=== PATIENT | female | born 1960 | race Caucasian/White ===

== ENCOUNTER → 2017-03-06 | Outpatient (REF) | payer OTHER ==
[2017-03-06 13:11] LABS: MEAN CORPUSCULAR HEMOGLOBIN 27.3 pg (27.0-33.0); MEAN CORPUSCULAR HGB CONC 33.6 g/dl (32.0-36.5); MEAN CORPUSCULAR VOLUME 81.2 fl (80.0-96.0); RED CELL DISTRIBUTION WIDTH 14.6 % (11.5-14.5); WHITE BLOOD COUNT 6.8 K/mm3 (4.0-10.0)
[2017-03-06 13:41] LABS: FOLATE 13.5 NG/ML (>5.4); VITAMIN B12 LEVEL 285 PG/ML (247-911)
[2017-03-06 15:06] LABS: ALBUMIN 3.4 GM/DL (3.2-5.2); ALKALINE PHOSPHATASE 87 U/L (45-117); ALT/SGPT 17 U/L (12-78); ANION GAP 16 MEQ/L (8-16); AST/SGOT 10 U/L (15-37); BILIRUBIN,TOTAL 0.5 MG/DL (0.2-1.0); BLOOD UREA NITROGEN 16 MG/DL (7-18); CARBON DIOXIDE LEVEL 20 MEQ/L (21-32); CHLORIDE LEVEL 101 MEQ/L (98-107); CHOLESTEROL LEVEL 182 MG/DL (<200); CREATININE FOR GFR 0.92 MG/DL (0.55-1.02); FREE T4 1.05 NG/DL (0.76-1.46); GLOMERULAR FILTRATION RATE > 60.0 (>51); GLUCOSE, FASTING 239 MG/DL (70-105); POTASSIUM SERUM 4.6 MEQ/L (3.5-5.1); SODIUM LEVEL 137 MEQ/L (136-145); TOTAL PROTEIN 6.8 GM/DL (6.4-8.2); TRIGLYCERIDES LEVEL 235 MG/DL (<150)
== END ==
LOC: M SFHCPLAZ 11:03
PROVIDERS: ATTEND Family Medicine
DX: L97.519 Non-pressure chronic ulcer of other part of right foot with unspecified severity (principal); E11.621 Type 2 diabetes mellitus with foot ulcer; F32.9 Major depressive disorder, single episode, unspecified; Z68.43 Body mass index [BMI] 50.0-59.9, adult; E78.5 Hyperlipidemia, unspecified

== ENCOUNTER → 2017-03-08 | Outpatient (REF) | payer OTHER ==
[2017-03-08 14:05] LABS: ANION GAP 13 MEQ/L (8-16); BLOOD UREA NITROGEN 14 MG/DL (7-18); CALCIUM LEVEL 9.5 MG/DL (8.5-10.1); CARBON DIOXIDE LEVEL 24 MEQ/L (21-32); CHLORIDE LEVEL 102 MEQ/L (98-107); CHOLESTEROL LEVEL 172 MG/DL (<200); CREATININE FOR GFR 0.82 MG/DL (0.55-1.02); GLOMERULAR FILTRATION RATE > 60.0 (>51); GLUCOSE, FASTING 232 MG/DL (70-105); POTASSIUM SERUM 4.9 MEQ/L (3.5-5.1); SODIUM LEVEL 139 MEQ/L (136-145); TRIGLYCERIDES LEVEL 283 MG/DL (<150)
== END ==
LOC: M LABDRWAD 12:45
PROVIDERS: ATTEND Physician Assistant Medical
DX: E11.65 Type 2 diabetes mellitus with hyperglycemia (principal); E78.2 Mixed hyperlipidemia

== ENCOUNTER → 2017-03-08 | Outpatient (REF) | payer OTHER | LOC: M SFHCADAM 12:28 | PROVIDERS: ATTEND Family Medicine | DX: L97.519 Non-pressure chronic ulcer of other part of right foot with unspecified severity (principal); E11.621 Type 2 diabetes mellitus with foot ulcer; F32.9 Major depressive disorder, single episode, unspecified; Z68.43 Body mass index [BMI] 50.0-59.9, adult ==

== ENCOUNTER → 2017-07-29 | Outpatient (REF) | payer OTHER | LOC: M LAB REF 16:30 | PROVIDERS: ATTEND Surgery | DX: E11.621 Type 2 diabetes mellitus with foot ulcer (principal); L97.519 Non-pressure chronic ulcer of other part of right foot with unspecified severity ==

== ENCOUNTER 2018-01-29 08:17 | Day surgery (SDC) | payer OTHER, MEDICAID ==
[~2018-01-29 08:17] MED LIST: PHENYLEPHRINE HCL 10 % OPHTH. SOL 5ML OD
[2018-01-29] MEDS ORDERED: PHENYLEPHRINE 2.5% OPHTH SOL 2ML As Ordered (08:26)
[2018-01-29] MEDS ORDERED: OFLOXACIN 0.3 % (OCUFLOX) OPTH SOL 5ML As Ordered (08:26)
[2018-01-29] MEDS ORDERED: CYCLOPENTOLATE 2% OPHTH SOLN 2ML BTL As Ordered (08:26)
[2018-01-29] MEDS ORDERED: TROPICAMIDE 1% OPHTH SOLN 2ML As Ordered (08:26)
[2018-01-29 08:50] LABS: BEDSIDE GLUCOSE 192 MG/DL (70-105)
[2018-01-29] MEDS: PHENYLEPHRINE 2.5% OPHTH SOL 2ML OD (08:56)
[2018-01-29] MEDS: CYCLOPENTOLATE 2% OPHTH SOLN 2ML BTL OD (08:56)
[2018-01-29] MEDS: LIDOCAINE 3.5 % 1ML OPHTH TOPICAL GEL OU (08:56)
[2018-01-29] MEDS: OFLOXACIN 0.3 % (OCUFLOX) OPTH SOL 5ML OD (08:56)
[2018-01-29] MEDS: TROPICAMIDE 1% OPHTH SOLN 2ML OD (08:57)
[2018-01-29] MEDS ORDERED: MIDAZOLAM INJ 2 MG/2 ML VIAL (J2250) As Ordered (09:01)
[2018-01-29] MEDS ORDERED: fentaNYL 100 MCG/2 ML INJECTION (J3010) As Ordered (09:02)
[2018-01-29] MEDS: LIDOCAINE 1% SDV 5 ML VIAL As Ordered (09:36)
[2018-01-29] MEDS: BSS with VANC/TOB/EPI for EYE CASES IR (09:36)
[2018-01-29] MEDS: MOXIFLOXACIN IN BSS 0.25MG/0.25ML INTRACAMERAL INJ (OR EYE ONLY)(J2280) As Ordered (09:36)
[2018-01-29] MEDS: POVIDONE-IODINE 5% OPHTH PREP SOL 30ML As Ordered (09:36)
[2018-01-29] MEDS: HEALON DUET (HEALON 10MG/ML 0.55ML & HEALON ENDOCOAT 30MG/ML 0.85ML) As Ordered (09:36)
[2018-01-29] MEDS: TRIAMCINOLONE PRES FR 40 MG/ML 1ML(TRIESENCE)(OR EYE ONLY)(J3300 PER 1MG) As Ordered (09:36)
== END 2018-01-29 10:40 | disposition home or self-care (01) ==
LOC: M SDC 08:17
DX: H25.9 Unspecified age-related cataract (principal); E11.9 Type 2 diabetes mellitus without complications; I10 Essential (primary) hypertension; Z79.4 Long term (current) use of insulin; Z79.899 Other long term (current) drug therapy; F32.9 Major depressive disorder, single episode, unspecified; E78.5 Hyperlipidemia, unspecified
CPT/HCPCS: 66984

== ENCOUNTER 2018-03-25 09:17 | Day surgery (SDC) | payer OTHER, MEDICAID ==
[~2018-03-25 09:17] MED LIST changes: -PHENYLEPHRINE HCL 10 % OPHTH. SOL 5ML OD; +PHENYLEPHRINE HCL 10 % OPHTH. SOL 5ML OS
[2018-03-25] MEDS ORDERED: LIDOCAINE 1% MDV 20ML VIAL SQ (09:30)
[2018-03-25] MEDS: OFLOXACIN 0.3 % (OCUFLOX) OPTH SOL 5ML OS (10:21)
[2018-03-25 10:22] LABS: BEDSIDE GLUCOSE 258 MG/DL (70-105)
[2018-03-25] MEDS: TROPICAMIDE 1% OPHTH SOLN 2ML OS (10:22)
[2018-03-25] MEDS: LIDOCAINE 3.5 % 1ML OPHTH TOPICAL GEL OU (10:22)
[2018-03-25] MEDS: PHENYLEPHRINE 2.5% OPHTH SOL 2ML OS (10:22)
[2018-03-25] MEDS: CYCLOPENTOLATE 2% OPHTH SOLN 2ML BTL OS (10:22)
[2018-03-25] MEDS: HumaLOG INSULIN (NovoLOG) PER UNIT SQ (10:42)
[2018-03-25] MEDS: LIDOCAINE 1% SDV 5 ML VIAL As Ordered ×2 (11:25→11:32)
[2018-03-25] MEDS: BSS with VANC/TOB/EPI for EYE CASES IR (11:25)
[2018-03-25] MEDS: TRIAMCINOLONE PRES FR 40 MG/ML 1ML(TRIESENCE)(OR EYE ONLY)(J3300 PER 1MG) As Ordered (11:25)
[2018-03-25] MEDS: POVIDONE-IODINE 5% OPHTH PREP SOL 30ML As Ordered ×2 (11:25→11:32)
[2018-03-25] MEDS: HEALON DUET (HEALON 10MG/ML 0.55ML & HEALON ENDOCOAT 30MG/ML 0.85ML) As Ordered ×2 (11:25→11:32)
[2018-03-25] MEDS: MOXIFLOXACIN IN BSS 0.25MG/0.25ML INTRACAMERAL INJ (OR EYE ONLY)(J2280) As Ordered (11:25)
[2018-03-25] MEDS ORDERED: MIDAZOLAM INJ 2 MG/2 ML VIAL (J2250) As Ordered (11:29)
[2018-03-25] MEDS ORDERED: fentaNYL 100 MCG/2 ML INJECTION (J3010) As Ordered (11:29)
[2018-03-25] MEDS: CEFUROXIME 1MG/0.1ML INTRACAMERAL INJ As Ordered (11:33)
== END 2018-03-25 12:22 | disposition home or self-care (01) ==
LOC: M SDC 09:17
DX: H25.9 Unspecified age-related cataract (principal); H57.03 Miosis; I10 Essential (primary) hypertension; E78.5 Hyperlipidemia, unspecified; E11.9 Type 2 diabetes mellitus without complications; F32.9 Major depressive disorder, single episode, unspecified; Z87.891 Personal history of nicotine dependence; Z79.4 Long term (current) use of insulin; Z88.2 Allergy status to sulfonamides; Z91.013 Allergy to seafood; Z79.899 Other long term (current) drug therapy
CPT/HCPCS: 66982

== ENCOUNTER → 2018-06-04 | Outpatient (REF) | payer OTHER, MEDICAID ==
[2018-06-04 13:28] LABS: HEMOGLOBIN 14.2 g/dl (12.0-15.5); MEAN CORPUSCULAR HEMOGLOBIN 25.6 pg (27.0-33.0); MEAN CORPUSCULAR HGB CONC 31.6 g/dl (32.0-36.5); MEAN CORPUSCULAR VOLUME 81.2 fl (80.0-96.0); PLATELET COUNT, AUTOMATED 375 10^3/uL (150-450); RED BLOOD COUNT 5.54 10^6/uL (4.00-5.40); RED CELL DISTRIBUTION WIDTH 14.3 % (11.5-14.5); WHITE BLOOD COUNT 6.5 10^3/uL (4.0-10.0)
[2018-06-04 13:41] LABS: ALBUMIN 3.6 GM/DL (3.2-5.2); ALBUMIN/GLOBULIN RATIO 1.09 (1.00-1.93); ALKALINE PHOSPHATASE 74 U/L (45-117); ALT/SGPT 18 U/L (12-78); ANION GAP 10 MEQ/L (8-16); AST/SGOT 12 U/L (7-37); BILIRUBIN,TOTAL 0.3 MG/DL (0.2-1.0); BLOOD UREA NITROGEN 13 MG/DL (7-18); CALCIUM LEVEL 9.2 MG/DL (8.5-10.1); CARBON DIOXIDE LEVEL 23 MEQ/L (21-32); CHLORIDE LEVEL 105 MEQ/L (98-107); CHOLESTEROL LEVEL 288 MG/DL (<200); CHOLESTEROL RISK RATIO 5.538 (<5); CREATININE FOR GFR 0.72 MG/DL (0.55-1.30); GLOMERULAR FILTRATION RATE > 60.0 (>51); GLUCOSE, FASTING 207 MG/DL (70-100); HDL CHOLESTEROL 52 MG/DL (>40); LDL CHOLESTEROL 178 MG/DL (<100); NON-HDL-C 236 MG/DL; POTASSIUM SERUM 4.4 MEQ/L (3.5-5.1); SODIUM LEVEL 138 MEQ/L (136-145); TOTAL PROTEIN 6.9 GM/DL (6.4-8.2); TRIGLYCERIDES LEVEL 288 MG/DL (<150)
[2018-06-04 13:55] LABS: ESTIMATED AVERAGE GLUCOSE 171 MG/DL (60-110); HEMOGLOBIN A1c 7.6 %
== END ==
LOC: M SFHCADAM 10:05
DX: F32.9 Major depressive disorder, single episode, unspecified (principal); E11.9 Type 2 diabetes mellitus without complications; E78.5 Hyperlipidemia, unspecified; E53.8 Deficiency of other specified B group vitamins

== ENCOUNTER → 2018-06-04 | Outpatient (REF) | payer OTHER, MEDICAID ==
[2018-06-04 15:34] LABS: FREE THYROXINE INDEX 2.5 % (1.3-4.8); T UPTAKE 34 % (30-39); THYROXINE (T4) 7.4 UG/DL (4.5-12.0)
[2018-06-06 14:38] LABS: SSA SJOGRENS A <0.2 AI (0.0-0.9); SSB SJOGRENS B <0.2 AI (0.0-0.9)
== END ==
LOC: M LAB REF 14:17
DX: Z13.29 Encounter for screening for other suspected endocrine disorder (principal)

== ENCOUNTER → 2019-01-07 | Outpatient (REF) ==
[~2019-01-07] MED LIST changes: +ATOR40TA75; +DILT1CAP9; +FARX1TAB3; +HYDR25TAB; +INSUDET; +INSUHUMDS; +LISI-538; +METF500T4; +NAPR500T6; +NYAM10003; -PHENYLEPHRINE HCL 10 % OPHTH. SOL 5ML OS; +SERT-138; +VICT18IN; +VITA10002
--- NOTE | 2019-01-08 02:59 | REP ---
Clinical: Left shoulder pain. Technique: Internal rotation, external rotation, and Y view of the right shoulder. Findings: Moderate/early advanced osteoarthritic degenerative changes at the acromioclavicular and glenohumeral joint are appreciated. Osteophytosis and periarticular calcifications are identified outlining the calcified glenoid rim along with calcific tendinopathy adjacent to the humeral tuberosity and the glenohumeral joint narrowing. Cortical irregularity and spurring involving the distal aspect of the acromion process is also appreciated with mild subacromial joint space narrowing on external rotation view to approximately 8.1 mm. No acute fracture dislocation. Impression: Moderate/early advanced osteoarthritic degenerative changes. Electronically Signed by Fuad Casas MD 01/08/2019 02:51 A
== END ==
LOC: M SMT 11:33
PROVIDERS: ATTEND Internal Medicine
DX: Z02.71 Encounter for disability determination (principal)

== ENCOUNTER → 2019-01-13 | Outpatient (REF) | payer OTHER, MEDICAID | LOC: M SFHCADAM 14:57 | PROVIDERS: ATTEND Family Medicine | DX: E11.9 Type 2 diabetes mellitus without complications (principal); E78.5 Hyperlipidemia, unspecified; F32.9 Major depressive disorder, single episode, unspecified; J01.90 Acute sinusitis, unspecified; Z53.9 Procedure and treatment not carried out, unspecified reason ==

== ENCOUNTER → 2019-02-05 | Outpatient (REF) | payer OTHER, MEDICAID ==
[2019-02-05 15:58] LABS: HEMATOCRIT 42.7 % (36.0-47.0); HEMOGLOBIN 13.6 g/dl (12.0-15.5); MEAN CORPUSCULAR HEMOGLOBIN 25.4 pg (27.0-33.0); MEAN CORPUSCULAR HGB CONC 31.9 g/dl (32.0-36.5); MEAN CORPUSCULAR VOLUME 79.8 fl (80.0-96.0); PLATELET COUNT, AUTOMATED 413 10^3/uL (150-450); RED BLOOD COUNT 5.35 10^6/uL (4.00-5.40); WHITE BLOOD COUNT 5.6 10^3/uL (4.0-10.0)
[2019-02-05 16:14] LABS: ALBUMIN 3.5 GM/DL (3.2-5.2); ALT/SGPT 26 U/L (12-78); BILIRUBIN,TOTAL 0.5 MG/DL (0.2-1.0); BLOOD UREA NITROGEN 11 MG/DL (7-18); CALCIUM LEVEL 9.9 MG/DL (8.8-10.2); CARBON DIOXIDE LEVEL 24 MEQ/L (21-32); CHLORIDE LEVEL 101 MEQ/L (98-107); CHOLESTEROL LEVEL 295 MG/DL (<200); CHOLESTEROL RISK RATIO 6.413 (<5); CREATININE FOR GFR 0.78 MG/DL (0.55-1.30); FREE T4 0.86 NG/DL (0.76-1.46); GLOMERULAR FILTRATION RATE > 60.0 (>45); GLUCOSE, FASTING 219 MG/DL (70-100); HDL CHOLESTEROL 46 MG/DL (>40); LDL CHOLESTEROL 173 MG/DL (<100); NON-HDL-C 249 MG/DL; POTASSIUM SERUM 4.2 MEQ/L (3.5-5.1); SODIUM LEVEL 136 MEQ/L (136-145); TOTAL PROTEIN 7.2 GM/DL (6.4-8.2); TRIGLYCERIDES LEVEL 382 MG/DL (<150)
[2019-02-05 18:27] LABS: HEMOGLOBIN A1c 9.2 %
== END ==
LOC: M SFHCADAM 13:59
PROVIDERS: ATTEND Family Medicine
DX: E11.9 Type 2 diabetes mellitus without complications (principal); E78.5 Hyperlipidemia, unspecified; F32.9 Major depressive disorder, single episode, unspecified; J01.90 Acute sinusitis, unspecified

== ENCOUNTER → 2019-09-29 | Outpatient (REF) | payer MEDICAID, OTHER ==
[~2019-09-29] MED LIST changes: +CYAN100049; +METF-791; -METF500T4; -VITA10002
[2019-09-29 16:22] LABS: HEMATOCRIT 27.1 % (36.0-47.0); HEMOGLOBIN 7.5 g/dl (12.0-15.5); MEAN CORPUSCULAR HEMOGLOBIN 19.9 pg (27.0-33.0); MEAN CORPUSCULAR HGB CONC 27.7 g/dl (32.0-36.5); MEAN CORPUSCULAR VOLUME 71.9 fl (80.0-96.0); PLATELET COUNT, AUTOMATED 508 10^3/uL (150-450); RED BLOOD COUNT 3.77 10^6/uL (4.00-5.40); WHITE BLOOD COUNT 8.5 10^3/uL (4.0-10.0)
[2019-09-29 16:40] LABS: HEMOGLOBIN A1c 8.8 %
[2019-09-29 16:50] LABS: ALBUMIN 3.5 GM/DL (3.2-5.2); BILIRUBIN,TOTAL 0.6 MG/DL (0.2-1.0); CALCIUM LEVEL 9.1 MG/DL (8.8-10.2); CHOLESTEROL RISK RATIO 3.384 (<5); CREATININE FOR GFR 1.01 MG/DL (0.55-1.30); GLOMERULAR FILTRATION RATE 59.3 (>45); POTASSIUM SERUM 4.9 MEQ/L (3.5-5.1); TOTAL PROTEIN 7.2 GM/DL (6.4-8.2)
== END ==
LOC: M SFHCADAM 14:21
PROVIDERS: ATTEND Family Medicine
DX: E11.9 Type 2 diabetes mellitus without complications (principal); E78.5 Hyperlipidemia, unspecified; I10 Essential (primary) hypertension; E53.8 Deficiency of other specified B group vitamins

== ENCOUNTER → 2019-10-05 | Outpatient (REF) | payer MEDICAID ==
[2019-10-05 13:48] LABS: PERCENT SATURATION 4.8 % (13.2-45.0)
[2019-10-05 14:37] LABS: HEMOGLOBIN A1c 8.1 %
== END ==
LOC: M SFHCADAM 10:32
PROVIDERS: ATTEND Family Medicine
DX: D50.9 Iron deficiency anemia, unspecified (principal); E11.9 Type 2 diabetes mellitus without complications

== ENCOUNTER → 2020-02-16 | Outpatient (REF) | payer MEDICAID ==
[~2020-02-16] MED LIST changes: +HYDR-3490; -HYDR25TAB; -LISI-538; +LISI20TA33; -METF-791; +METF-838
== END ==
LOC: M SFHCADAM 14:53
PROVIDERS: ATTEND Family Medicine
DX: D50.9 Iron deficiency anemia, unspecified (principal); E11.9 Type 2 diabetes mellitus without complications; E78.5 Hyperlipidemia, unspecified

== ENCOUNTER → 2020-03-03 | Outpatient (REF) | payer MEDICAID, OTHER ==
[~2020-03-03] MED LIST changes: -HYDR-3490; +HYDR25TAB; +LISI-538; -LISI20TA33
[2020-03-03 17:40] LABS: ALT/SGPT 14 U/L (12-78); BILIRUBIN,TOTAL 0.4 MG/DL (0.2-1.0); BLOOD UREA NITROGEN 7 MG/DL (7-18); CARBON DIOXIDE LEVEL 27 MEQ/L (21-32); CHLORIDE LEVEL 103 MEQ/L (98-107); CHOLESTEROL LEVEL 135 MG/DL (<200); CREATININE FOR GFR 0.61 MG/DL (0.55-1.30); FERRITIN 24 NG/ML (8-252); GLOMERULAR FILTRATION RATE > 60.0 (>45); GLUCOSE, FASTING 109 MG/DL (70-100); HDL CHOLESTEROL 36 MG/DL (>40); IRON (FE) 20 UG/DL (50-170); LDL CHOLESTEROL 74 MG/DL (<100); NON-HDL-C 99 MG/DL; PERCENT SATURATION 5.3 % (13.2-45.0); SODIUM LEVEL 136 MEQ/L (136-145); TOTAL IRON BINDING CAPACITY 378 UG/DL (250-450); TRIGLYCERIDES LEVEL 127 MG/DL (<150)
[2020-03-03 17:49] LABS: HEMOGLOBIN A1c 5.9 %
[2020-03-03 18:07] LABS: HEMATOCRIT 29.7 % (36.0-47.0); MEAN CORPUSCULAR HEMOGLOBIN 16.7 pg (27.0-33.0); MEAN CORPUSCULAR HGB CONC 26.9 g/dl (32.0-36.5); MEAN CORPUSCULAR VOLUME 62.1 fl (80.0-96.0); PLATELET COUNT, AUTOMATED 740 10^3/uL (150-450); RED BLOOD COUNT 4.78 10^6/uL (4.00-5.40); WHITE BLOOD COUNT 8.1 10^3/uL (4.0-10.0)
== END ==
LOC: M SFHCADAM 14:54
PROVIDERS: ATTEND Family Medicine
DX: E11.9 Type 2 diabetes mellitus without complications (principal); D50.9 Iron deficiency anemia, unspecified; E78.5 Hyperlipidemia, unspecified

== ENCOUNTER → 2021-01-06 | Outpatient (REF) | payer OTHER ==
[~2021-01-06] MED LIST changes: +HYDR-3490; -HYDR25TAB; -LISI-538; +LISI20TA33
== END ==
LOC: M SFHCADAM 14:20
PROVIDERS: ATTEND Family Medicine
DX: Z53.9 Procedure and treatment not carried out, unspecified reason (principal); D50.9 Iron deficiency anemia, unspecified; E53.8 Deficiency of other specified B group vitamins; E78.5 Hyperlipidemia, unspecified; F32.9 Major depressive disorder, single episode, unspecified; I10 Essential (primary) hypertension; E11.9 Type 2 diabetes mellitus without complications

== ENCOUNTER 2021-11-07 19:25 | Observation (INO) | payer OTHER ==
[~2021-11-07] VITALS: Ht 167.6 cm; Wt 122.5 kg
[~2021-11-07 19:25] MED LIST changes: -ACET-683 PO; -ATOR80TA59 PO; -BASA100I SC; -BRIM1OPD OU; -DILT1CAP46 PO; -DORZ2SOL5 OU; -DOXY100T PO; -FERR32TA PO; -FOLI1TAB11 PO; -HYDR-3490 PO; -INSUH10VL SC; -LISI20TA33 PO; -METF-838 PO; -NAPR-885 PO; -PANT40TA29 PO; -XALA0.007 OU; -ZOLO100T PO
[2021-11-07] MEDS ORDERED: HYDR-3490 PO (20:41)
[2021-11-07] MEDS ORDERED: DILT1CAP46 PO (20:41)
[2021-11-07] MEDS ORDERED: BASA100I SC (20:41)
[2021-11-07] MEDS ORDERED: NAPR-885 PO (20:41)
[2021-11-07] MEDS ORDERED: ZOLO100T PO (20:41)
[2021-11-07] MEDS ORDERED: BRIM1OPD OU (20:41)
[2021-11-07] MEDS ORDERED: ATOR80TA59 PO (20:41)
[2021-11-07] MEDS ORDERED: DOXY100T PO (20:41)
[2021-11-07] MEDS ORDERED: LISI20TA33 PO (20:41)
[2021-11-07] MEDS ORDERED: INSUH10VL SC (20:41)
[2021-11-07] MEDS ORDERED: METF-838 PO (20:41)
[2021-11-07] MEDS ORDERED: FERR32TA PO (20:41)
[2021-11-07] MEDS ORDERED: XALA0.007 OU (20:41)
[2021-11-07] MEDS ORDERED: DORZ2SOL5 OU (20:41)
[2021-11-07] MEDS ORDERED: HOME MED LIST COMPLETE! XX SCH (20:45)
[2021-11-07] MEDS ORDERED: ATORVASTATIN 20 MG TAB PO SCH (21:00)
[2021-11-07] MEDS ORDERED: diltiaZEM **CD** 180 MG CAP PO SCH (21:00)
[2021-11-07] MEDS ORDERED: LATANOPROST 0.005% OPHTH SOLN 2.5 ML OU SCH (21:00)
[2021-11-07] MEDS ORDERED: HumaLOG INSULIN (NovoLOG) PER UNIT SC SCH (21:00)
[2021-11-07] MEDS ORDERED: SERTRALINE 100 MG TAB PO SCH (21:00)
[2021-11-07] MEDS: LEVEMIR (INSULIN DETEMIR) 1 UNITS/0.01ML SC SCH (21:00)
[2021-11-07] MEDS ORDERED: DEXTROSE 50% 50 ML SYRINGE IV PRN (21:05)
[2021-11-07] MEDS ORDERED: GLUCAGON INJ 1MG VIAL SC PRN (21:05)
[2021-11-07] MEDS ORDERED: GLUCOSE 4GM CHEW TABLET PO PRN (21:05)
[2021-11-07 21:13] LABS: RSV AMPLIFICATION NEGATIVE (NEGATIVE)
[2021-11-07] MEDS ORDERED: ACETAMINOPHEN TAB 650MG DOSE (2X325MG) PO PRN (21:30)
[2021-11-07 22:16] LABS: BASO # 0.1 10^3/uL (0.0-0.2); BASO % 1.3 % (0.0-1.0); EOS # 0.2 10^3/uL (0.0-0.5); EOS % 2.6 % (0.0-3.0); HEMATOCRIT 21.2 % (36.0-47.0); LYMPH # 0.8 10^3/uL (1.5-5.0); LYMPH % 9.6 % (24.0-44.0); MEAN CORPUSCULAR HEMOGLOBIN 15.3 pg (27.0-33.0); MEAN CORPUSCULAR HGB CONC 24.1 g/dl (32.0-36.5); MEAN CORPUSCULAR VOLUME 63.5 fl (80.0-96.0); MONO # 0.6 10^3/uL (0.0-0.8); MONO % 7.4 % (2.0-8.0); NEUTROPHILS # 6.8 10^3/uL (1.5-8.5); NEUTROPHILS % 78.5 % (36.0-66.0); PLATELET COUNT, AUTOMATED 504 10^3/uL (150-450); RED BLOOD COUNT 3.34 10^6/uL (4.00-5.40); WHITE BLOOD COUNT 8.6 10^3/uL (4.0-10.0)
[2021-11-07 22:20] LABS: HEMOGLOBIN 5.1 g/dl (12.0-15.5)
[2021-11-07 22:23] VITALS: BP 114/46
[2021-11-07] MEDS: SUCRALFATE 1 GM TAB PO SCH (22:23)
[2021-11-07] MEDS: PANTOPRAZOLE 40MG VIAL (C9113 PER 1) IV SCH (22:23)
[2021-11-07 22:30] LABS: INR 1.07; PROTHROMBIN TIME 14.3 SECONDS (12.7-14.5)
[2021-11-07 22:31] LABS: PARTIAL THROMBOPLASTIN TIME 28.6 SECONDS (25.9-37.0)
[2021-11-07 22:35] LABS: BLOOD UREA NITROGEN 15 MG/DL (7-18); CALCIUM LEVEL 9.3 MG/DL (8.8-10.2); CARBON DIOXIDE LEVEL 28 MEQ/L (21-32); CHLORIDE LEVEL 105 MEQ/L (98-107); GLOMERULAR FILTRATION RATE > 60.0 (>45); GLUCOSE, FASTING 95 MG/DL (70-100); POTASSIUM SERUM 4.4 MEQ/L (3.5-5.1); SODIUM LEVEL 137 MEQ/L (136-145)
[2021-11-07 23:14] VITALS: BP 122/62
[2021-11-07 23:25] VITALS: BP 136/62
[2021-11-07 23:30] VITALS: BP 136/62
[2021-11-08] VITALS (13 sets, daily range): BP systolic 121–146; BP diastolic 59–69
[2021-11-08] MEDS: SUCRALFATE 1 GM TAB PO SCH ×2 (05:29→13:24)
[2021-11-08 06:21] LABS: BASO # 0.1 10^3/uL (0.0-0.2); BASO % 1.1 % (0.0-1.0); EOS # 0.2 10^3/uL (0.0-0.5); EOS % 2.5 % (0.0-3.0); HEMATOCRIT 26.3 % (36.0-47.0); LYMPH # 0.8 10^3/uL (1.5-5.0); MEAN CORPUSCULAR HEMOGLOBIN 19.5 pg (27.0-33.0); MEAN CORPUSCULAR HGB CONC 28.1 g/dl (32.0-36.5); MEAN CORPUSCULAR VOLUME 69.4 fl (80.0-96.0); MONO # 0.9 10^3/uL (0.0-0.8); MONO % 9.8 % (2.0-8.0); NEUTROPHILS # 7.1 10^3/uL (1.5-8.5); PLATELET COUNT, AUTOMATED 441 10^3/uL (150-450); RED BLOOD COUNT 3.79 10^6/uL (4.00-5.40); WHITE BLOOD COUNT 9.2 10^3/uL (4.0-10.0)
[2021-11-08 06:28] LABS: HEMOGLOBIN 7.4 g/dl (12.0-15.5)
[2021-11-08 06:53] LABS: PERCENT SATURATION 23.7 % (13.2-45.0)
[2021-11-08] MEDS ORDERED: BRIMONIDINE 0.1% OPHTH SOLN 5 ML OU SCH (08:00)
[2021-11-08] MEDS ORDERED: COSOPT OCUMETER PLUS 10ML (DORZOLAMIDE/TIMOLOL) OU SCH (08:00)
[2021-11-08] MEDS: HumaLOG INSULIN (NovoLOG) PER UNIT SC SCH ×3 (08:49→13:30)
[2021-11-08] MEDS: PANTOPRAZOLE 40MG VIAL (C9113 PER 1) IV SCH (08:49)
[2021-11-08] MEDS: LEVEMIR (INSULIN DETEMIR) 1 UNITS/0.01ML SC SCH (08:50)
[2021-11-08 08:58] LABS: HEMATOCRIT 26.8 % (36.0-47.0); HEMOGLOBIN 7.6 g/dl (12.0-15.5)
[2021-11-08 09:54] LABS: FOLATE 4.8 NG/ML (>5.4)
[2021-11-08] MEDS ORDERED: IRON SUCROSE 100MG 5ML VIAL (J1756 PER 1MG) IV ONE (12:00)
[2021-11-08] MEDS ORDERED: FOLIC ACID 1 MG in NS 50 ML IV SCH (13:00)
[2021-11-08 13:44] LABS: HEMATOCRIT 27.5 % (36.0-47.0); HEMOGLOBIN 7.7 g/dl (12.0-15.5)
[2021-11-08] MEDS ORDERED: FOLI1TAB11 PO (14:07)
[2021-11-08] MEDS ORDERED: PANT40TA29 PO (14:07)
[2021-11-08] MEDS ORDERED: ACET-683 PO ×2 (14:07→14:08)
[2021-11-08 15:18] LABS: HEMATOCRIT 27.3 % (36.0-47.0); HEMOGLOBIN 7.6 g/dl (12.0-15.5)
[2021-11-08] MEDS ORDERED: FERROUS GLUCONATE 324 MG TAB PO SCH (18:00)
== END 2021-11-08 16:01 | disposition home or self-care (01) ==
LOC: M ED 19:25 → M ED INP 19:26 → INTOOBSV 20:37 → M ED INP 20:37 → UNDOADMOB 20:37 → ENRESERV 21:07 → M MSPAV 23:25 → M ED INP 23:25
PROVIDERS: ADMIT Family Medicine; ATTEND Internal Medicine
DX: D50.9 Iron deficiency anemia, unspecified (principal); D52.9 Folate deficiency anemia, unspecified; M19.90 Unspecified osteoarthritis, unspecified site; E11.9 Type 2 diabetes mellitus without complications; I10 Essential (primary) hypertension; E78.5 Hyperlipidemia, unspecified; Z79.84 Long term (current) use of oral hypoglycemic drugs; Z79.4 Long term (current) use of insulin; Z79.899 Other long term (current) drug therapy; Z91.013 Allergy to seafood; Z88.2 Allergy status to sulfonamides; F41.9 Anxiety disorder, unspecified
CPT/HCPCS: 36415; 36430; 71045; 80048; 82607; 82728; 82746; 83550; 85014; 85018; 85025; 85610; 85730; 86850; 86900; 86901; 86920; 87631; 93005; 93041; 93306; 94760; 99285; C9113; J1756; J1815; P9016

== ENCOUNTER → 2021-11-07 | Outpatient (REF) | payer OTHER ==
[~2021-11-07] MED LIST changes: +ACET-683 PO; +ATOR80TA59 PO; +BASA100I SC; +BRIM1OPD OU; +DILT1CAP46 PO; +DORZ2SOL5 OU; +DOXY100T PO; +FERR32TA PO; +FOLI1TAB11 PO; +HYDR-3490 PO; +INSUH10VL SC; +LISI20TA33 PO; +METF-838 PO; +NAPR-885 PO; +PANT40TA29 PO; +XALA0.007 OU; +ZOLO100T PO
[2021-11-07 17:18] LABS: ALBUMIN 3.4 GM/DL (3.2-5.2); ALT/SGPT 9 U/L (12-78); BILIRUBIN,TOTAL 0.5 MG/DL (0.2-1.0); BLOOD UREA NITROGEN 15 MG/DL (7-18); CALCIUM LEVEL 9.6 MG/DL (8.8-10.2); CARBON DIOXIDE LEVEL 27 MEQ/L (21-32); CHLORIDE LEVEL 106 MEQ/L (98-107); CHOLESTEROL LEVEL 80 MG/DL (<200); CREATININE FOR GFR 0.74 MG/DL (0.55-1.30); FERRITIN < 3 NG/ML (8-252); FREE T4 1.11 NG/DL (0.76-1.46); GLOMERULAR FILTRATION RATE > 60.0 (>45); GLUCOSE, FASTING 141 MG/DL (70-100); HDL CHOLESTEROL 43 MG/DL (>40); IRON (FE) 12 UG/DL (50-170); LDL CHOLESTEROL 22 MG/DL (<100); NON-HDL-C 37 MG/DL; PERCENT SATURATION 2.8 % (13.2-45.0); POTASSIUM SERUM 4.6 MEQ/L (3.5-5.1); SODIUM LEVEL 138 MEQ/L (136-145); TOTAL IRON BINDING CAPACITY 426 UG/DL (250-450); TOTAL PROTEIN 6.8 GM/DL (6.4-8.2); TRIGLYCERIDES LEVEL 75 MG/DL (<150)
[2021-11-07 17:21] LABS: VITAMIN B12 LEVEL 330 PG/ML (247-911)
[2021-11-07 17:22] LABS: FOLATE 5.3 NG/ML (>5.4)
[2021-11-07 17:52] LABS: MEAN CORPUSCULAR HEMOGLOBIN 15.5 pg (27.0-33.0); MEAN CORPUSCULAR HGB CONC 25.1 g/dl (32.0-36.5); MEAN CORPUSCULAR VOLUME 61.5 fl (80.0-96.0); PLATELET COUNT, AUTOMATED 517 10^3/uL (150-450); WHITE BLOOD COUNT 7.9 10^3/uL (4.0-10.0)
[2021-11-07 18:22] LABS: HEMATOCRIT 20.3 % (36.0-47.0); HEMOGLOBIN 5.1 g/dl (12.0-15.5)
== END ==
LOC: M SFHCADAM 13:42
PROVIDERS: ATTEND Family Medicine
DX: J01.90 Acute sinusitis, unspecified (principal); E53.8 Deficiency of other specified B group vitamins; D50.9 Iron deficiency anemia, unspecified; E11.621 Type 2 diabetes mellitus with foot ulcer; I10 Essential (primary) hypertension; E78.5 Hyperlipidemia, unspecified; F32.9 Major depressive disorder, single episode, unspecified

== ENCOUNTER 2021-12-05 13:48 | Inpatient (IN) | payer OTHER ==
[2021-12-05] VITALS (10 sets, daily range): BP systolic 98–133; BP diastolic 37–59
[~2021-12-05 13:48] MED LIST changes: -ACET500T15 PO
[2021-12-05] MEDS ORDERED: DEXTROSE 50% 50 ML SYRINGE IV PRN (16:35)
[2021-12-05] MEDS ORDERED: GLUCOSE 4GM CHEW TABLET PO PRN (16:35)
[2021-12-05] MEDS ORDERED: GLUCAGON INJ 1MG VIAL SC PRN (16:35)
[2021-12-05 17:21] LABS: MEAN CORPUSCULAR HEMOGLOBIN 20.5 pg (27.0-33.0); MEAN CORPUSCULAR HGB CONC 28.2 g/dl (32.0-36.5); MEAN CORPUSCULAR VOLUME 72.8 fl (80.0-96.0); PLATELET COUNT, AUTOMATED 631 10^3/uL (150-450); RED BLOOD COUNT 2.83 10^6/uL (4.00-5.40); WHITE BLOOD COUNT 9.9 10^3/uL (4.0-10.0)
[2021-12-05 17:23] LABS: HEMOGLOBIN 5.8 g/dl (12.0-15.5)
[2021-12-05 17:24] LABS: HEMATOCRIT 20.6 % (36.0-47.0)
[2021-12-05 17:33] LABS: INR 0.99; PROTHROMBIN TIME 13.5 SECONDS (12.7-14.5)
[2021-12-05 17:34] LABS: PARTIAL THROMBOPLASTIN TIME 28.3 SECONDS (25.9-37.0)
[2021-12-05 17:36] LABS: ALBUMIN 3.1 GM/DL (3.2-5.2); ALT/SGPT < 6 U/L (12-78); BILIRUBIN,TOTAL 0.4 MG/DL (0.2-1.0); BLOOD UREA NITROGEN 22 MG/DL (7-18); CARBON DIOXIDE LEVEL 28 MEQ/L (21-32); CHLORIDE LEVEL 104 MEQ/L (98-107); CREATININE FOR GFR 0.83 MG/DL (0.55-1.30); GLOMERULAR FILTRATION RATE > 60.0 (>45); GLUCOSE, FASTING 158 MG/DL (70-100); POTASSIUM SERUM 4.4 MEQ/L (3.5-5.1); SODIUM LEVEL 136 MEQ/L (136-145); TOTAL PROTEIN 6.4 GM/DL (6.4-8.2)
[2021-12-05] MEDS: HumaLOG INSULIN (NovoLOG) PER UNIT SC SCH ×2 (18:02→23:25)
[2021-12-05] MEDS ORDERED: PANT40TA29 PO (18:09)
[2021-12-05] MEDS ORDERED: ACET500T15 PO (18:09)
[2021-12-05] MEDS ORDERED: FOLI1TAB11 PO (18:09)
[2021-12-05] MEDS ORDERED: HOME MED LIST COMPLETE! XX SCH (18:10)
[2021-12-05] MEDS ORDERED: DOCUSATE SODIUM 100MG CAPSULE PO ONE (21:00)
[2021-12-05] MEDS ORDERED: GABAPENTIN 100 MG CAP PO SCH (21:00)
[2021-12-05] MEDS: LIDOCAINE 5% (LIDODERM) PATCH TD SCH (22:28)
[2021-12-05] MEDS: PANTOPRAZOLE 40MG VIAL IV SCH (23:00)
[2021-12-05] MEDS: COSOPT OCUMETER PLUS 10ML (DORZOLAMIDE/TIMOLOL) OU SCH (23:01)
[2021-12-05] MEDS: LATANOPROST 0.005% OPHTH SOLN 2.5 ML OU SCH (23:01)
[2021-12-05] MEDS: NYSTATIN 100,000 UNITS/GM TOPICAL PWD 15 GM TOP SCH (23:01)
[2021-12-05] MEDS: BRIMONIDINE 0.1% OPHTH SOLN 5 ML OU SCH (23:01)
[2021-12-06] VITALS (17 sets, daily range): BP systolic 99–136; BP diastolic 45–63
[2021-12-06] MEDS: ACETAMINOPHEN TAB 650MG DOSE (2X325MG) PO PRN ×2 (04:46→23:59)
[2021-12-06] MEDS: HumaLOG INSULIN (NovoLOG) PER UNIT SC SCH ×4 (05:12→23:59)
[2021-12-06 06:39] LABS: HEMATOCRIT 23.6 % (36.0-47.0); HEMOGLOBIN 7.1 g/dl (12.0-15.5); MEAN CORPUSCULAR HEMOGLOBIN 22.8 pg (27.0-33.0); MEAN CORPUSCULAR HGB CONC 30.1 g/dl (32.0-36.5); MEAN CORPUSCULAR VOLUME 75.6 fl (80.0-96.0); RED BLOOD COUNT 3.12 10^6/uL (4.00-5.40); WHITE BLOOD COUNT 8.3 10^3/uL (4.0-10.0)
[2021-12-06 06:45] LABS: PLATELET COUNT, AUTOMATED 467 10^3/uL (150-450)
[2021-12-06 07:04] LABS: BLOOD UREA NITROGEN 18 MG/DL (7-18); CALCIUM LEVEL 9.6 MG/DL (8.8-10.2); CARBON DIOXIDE LEVEL 28 MEQ/L (21-32); CHLORIDE LEVEL 108 MEQ/L (98-107); CREATININE FOR GFR 0.73 MG/DL (0.55-1.30); GLOMERULAR FILTRATION RATE > 60.0 (>45); GLUCOSE, FASTING 120 MG/DL (70-100); SODIUM LEVEL 140 MEQ/L (136-145)
[2021-12-06] MEDS: **NOTE PATIENT COMMENT** MISC XX SCH (09:00)
[2021-12-06] MEDS: SERTRALINE 100 MG TAB PO SCH (09:45)
[2021-12-06] MEDS: FOLIC ACID 1 MG TAB PO SCH (09:45)
[2021-12-06] MEDS: CYANOCOBALAMIN 500 MCG TAB PO SCH (09:45)
[2021-12-06] MEDS: ATORVASTATIN 20 MG TAB PO SCH (09:45)
[2021-12-06] MEDS: BRIMONIDINE 0.1% OPHTH SOLN 5 ML OU SCH ×2 (09:46→20:38)
[2021-12-06] MEDS: COSOPT OCUMETER PLUS 10ML (DORZOLAMIDE/TIMOLOL) OU SCH ×2 (09:46→20:38)
[2021-12-06] MEDS: NYSTATIN 100,000 UNITS/GM TOPICAL PWD 15 GM TOP SCH ×2 (09:47→20:39)
[2021-12-06] MEDS: PANTOPRAZOLE 40MG VIAL IV SCH ×2 (10:38→20:38)
[2021-12-06] MEDS ORDERED: MOM 30ML SUSPENSION UDC PO ONE (16:05)
[2021-12-06] MEDS ORDERED: POLYETHYLENE GLYCOL (MIRALAX) 238GM BOTTLE PO ONE (18:00)
[2021-12-06] MEDS: LIDOCAINE 5% (LIDODERM) PATCH TD SCH (20:33)
[2021-12-06] MEDS: LATANOPROST 0.005% OPHTH SOLN 2.5 ML OU SCH (20:38)
[2021-12-07] VITALS (11 sets, daily range): BP systolic 110–126; BP diastolic 47–59
[2021-12-07] MEDS ORDERED: POLYETHYLENE GLYCOL (MIRALAX) 238GM BOTTLE PO ONE (05:00)
[2021-12-07] MEDS: HumaLOG INSULIN (NovoLOG) PER UNIT SC SCH ×3 (05:08→17:30)
[2021-12-07 06:34] LABS: HEMATOCRIT 31.9 % (36.0-47.0); MEAN CORPUSCULAR HEMOGLOBIN 23.6 pg (27.0-33.0); MEAN CORPUSCULAR HGB CONC 30.4 g/dl (32.0-36.5); MEAN CORPUSCULAR VOLUME 77.6 fl (80.0-96.0); PLATELET COUNT, AUTOMATED 508 10^3/uL (150-450); RED BLOOD COUNT 4.11 10^6/uL (4.00-5.40); WHITE BLOOD COUNT 9.4 10^3/uL (4.0-10.0)
[2021-12-07 06:43] LABS: HEMOGLOBIN 9.7 g/dl (12.0-15.5)
[2021-12-07 06:58] LABS: BLOOD UREA NITROGEN 12 MG/DL (7-18); CARBON DIOXIDE LEVEL 27 MEQ/L (21-32); CHLORIDE LEVEL 103 MEQ/L (98-107); CREATININE FOR GFR 0.69 MG/DL (0.55-1.30); GLOMERULAR FILTRATION RATE > 60.0 (>45); GLUCOSE, FASTING 110 MG/DL (70-100); POTASSIUM SERUM 4.2 MEQ/L (3.5-5.1); SODIUM LEVEL 136 MEQ/L (136-145)
[2021-12-07] MEDS ORDERED: LIDOCAINE 2% 100MG/5ML SDV (FOR ANES.) As Ordered ONE (07:26)
[2021-12-07] MEDS ORDERED: propofoL 200 MG/20 ML VIAL As Ordered ONE ×2 (07:26→16:10)
[2021-12-07] MEDS: FOLIC ACID 1 MG TAB PO SCH (08:35)
[2021-12-07] MEDS: BRIMONIDINE 0.1% OPHTH SOLN 5 ML OU SCH ×2 (08:35→20:49)
[2021-12-07] MEDS: COSOPT OCUMETER PLUS 10ML (DORZOLAMIDE/TIMOLOL) OU SCH ×2 (08:35→20:49)
[2021-12-07] MEDS: **NOTE PATIENT COMMENT** MISC XX SCH (08:35)
[2021-12-07] MEDS: ATORVASTATIN 20 MG TAB PO SCH (08:35)
[2021-12-07] MEDS: PANTOPRAZOLE 40MG VIAL IV SCH (08:35)
[2021-12-07] MEDS: CYANOCOBALAMIN 500 MCG TAB PO SCH (08:35)
[2021-12-07] MEDS: NYSTATIN 100,000 UNITS/GM TOPICAL PWD 15 GM TOP SCH ×2 (08:35→20:49)
[2021-12-07] MEDS: SERTRALINE 100 MG TAB PO SCH (08:35)
[2021-12-07] MEDS: SUCRALFATE 1 GM TAB PO SCH ×2 (18:42→20:48)
[2021-12-07] MEDS: LATANOPROST 0.005% OPHTH SOLN 2.5 ML OU SCH (20:49)
[2021-12-07] MEDS: LIDOCAINE 5% (LIDODERM) PATCH TD SCH (20:49)
[2021-12-07] MEDS: PANTOPRAZOLE 40MG TAB (PROTONIX) PO SCH (20:49)
[2021-12-07] MEDS ORDERED: HumaLOG INSULIN (NovoLOG) PER UNIT SC SCH (21:00)
[2021-12-07] MEDS: ACETAMINOPHEN TAB 650MG DOSE (2X325MG) PO PRN (22:16)
[2021-12-08 03:01] VITALS: BP 114/57
[2021-12-08 06:00] VITALS: BP 140/63
[2021-12-08 06:50] LABS: HEMATOCRIT 28.6 % (36.0-47.0); HEMOGLOBIN 8.6 g/dl (12.0-15.5); MEAN CORPUSCULAR HEMOGLOBIN 23.2 pg (27.0-33.0); MEAN CORPUSCULAR HGB CONC 30.1 g/dl (32.0-36.5); MEAN CORPUSCULAR VOLUME 77.3 fl (80.0-96.0); PLATELET COUNT, AUTOMATED 432 10^3/uL (150-450); WHITE BLOOD COUNT 8.2 10^3/uL (4.0-10.0)
[2021-12-08 07:06] LABS: BLOOD UREA NITROGEN 11 MG/DL (7-18); CALCIUM LEVEL 9.3 MG/DL (8.8-10.2); CARBON DIOXIDE LEVEL 28 MEQ/L (21-32); CHLORIDE LEVEL 105 MEQ/L (98-107); CREATININE FOR GFR 0.66 MG/DL (0.55-1.30); GLOMERULAR FILTRATION RATE > 60.0 (>45); GLUCOSE, FASTING 136 MG/DL (70-100); POTASSIUM SERUM 4.3 MEQ/L (3.5-5.1); SODIUM LEVEL 137 MEQ/L (136-145)
[2021-12-08] MEDS: **NOTE PATIENT COMMENT** MISC XX SCH (09:00)
[2021-12-08] MEDS: PANTOPRAZOLE 40MG TAB (PROTONIX) PO SCH (09:23)
[2021-12-08] MEDS: CYANOCOBALAMIN 500 MCG TAB PO SCH (09:23)
[2021-12-08] MEDS: HumaLOG INSULIN (NovoLOG) PER UNIT SC SCH ×2 (09:23→12:13)
[2021-12-08] MEDS: FOLIC ACID 1 MG TAB PO SCH (09:23)
[2021-12-08] MEDS: SUCRALFATE 1 GM TAB PO SCH ×2 (09:23→12:10)
[2021-12-08] MEDS: ATORVASTATIN 20 MG TAB PO SCH (09:23)
[2021-12-08] MEDS: SERTRALINE 100 MG TAB PO SCH (09:23)
[2021-12-08] MEDS: COSOPT OCUMETER PLUS 10ML (DORZOLAMIDE/TIMOLOL) OU SCH (09:24)
[2021-12-08] MEDS: NYSTATIN 100,000 UNITS/GM TOPICAL PWD 15 GM TOP SCH (09:24)
[2021-12-08] MEDS: BRIMONIDINE 0.1% OPHTH SOLN 5 ML OU SCH (09:24)
[2021-12-08 12:12] VITALS: BP 121/54
== END 2021-12-08 13:00 | disposition home or self-care (01) | DRG 254 ==
LOC: M MSPAV 16:16
PROVIDERS: ADMIT Family Medicine; ATTEND Family Medicine
PROC: 30233N1 Transfusion of Nonautologous Red Blood Cells into Peripheral Vein, Percutaneous Approach (ICD-10-PCS; 2021-12-05)
PROC: 0DBN4ZX Excision of Sigmoid Colon, Percutaneous Endoscopic Approach, Diagnostic (ICD-10-PCS; 2021-12-07)
PROC: 0W3P8ZZ Control Bleeding in Gastrointestinal Tract, Via Natural or Artificial Opening Endoscopic (ICD-10-PCS; principal; 2021-12-07 15:00)
DX: K31.819 Angiodysplasia of stomach and duodenum without bleeding (principal); I47.2 Ventricular tachycardia; D50.0 Iron deficiency anemia secondary to blood loss (chronic); E11.9 Type 2 diabetes mellitus without complications; E53.8 Deficiency of other specified B group vitamins; F32.A Depression, unspecified; I35.0 Nonrheumatic aortic (valve) stenosis; K57.30 Diverticulosis of large intestine without perforation or abscess without bleeding; K64.8 Other hemorrhoids; D12.5 Benign neoplasm of sigmoid colon

== ENCOUNTER → 2021-12-05 | Outpatient (REF) | payer OTHER ==
[~2021-12-05] MED LIST changes: +ACET-683 PO; +ACET500T15 PO; +ATOR80TA59 PO; +BASA100I SC; +BRIM1OPD OU; +DILT1CAP46 PO; +DORZ2SOL5 OU; +DOXY100T PO; +FERR32TA PO; +FOLI1TAB11 PO; +HYDR-3490 PO; +INSUH10VL SC; +LISI20TA33 PO; +METF-838 PO; +NAPR-885 PO; +PANT40TA29 PO; +XALA0.007 OU; +ZOLO100T PO
[2021-12-05 12:47] LABS: MEAN CORPUSCULAR HEMOGLOBIN 20.4 pg (27.0-33.0); MEAN CORPUSCULAR HGB CONC 27.6 g/dl (32.0-36.5); MEAN CORPUSCULAR VOLUME 73.8 fl (80.0-96.0); PLATELET COUNT, AUTOMATED 601 10^3/uL (150-450); RED BLOOD COUNT 2.75 10^6/uL (4.00-5.40); WHITE BLOOD COUNT 9.2 10^3/uL (4.0-10.0)
[2021-12-05 13:10] LABS: HEMATOCRIT 20.3 % (36.0-47.0); HEMOGLOBIN 5.6 g/dl (12.0-15.5)
[2021-12-05 13:24] LABS: BLOOD UREA NITROGEN 20 MG/DL (7-18); CALCIUM LEVEL 9.7 MG/DL (8.8-10.2); CARBON DIOXIDE LEVEL 26 MEQ/L (21-32); CHLORIDE LEVEL 105 MEQ/L (98-107); CREATININE FOR GFR 0.85 MG/DL (0.55-1.30); FERRITIN 5 NG/ML (8-252); GLOMERULAR FILTRATION RATE > 60.0 (>45); GLUCOSE, FASTING 129 MG/DL (70-100); IRON (FE) 12 UG/DL (50-170); PERCENT SATURATION 3.3 % (13.2-45.0); POTASSIUM SERUM 4.2 MEQ/L (3.5-5.1); SODIUM LEVEL 137 MEQ/L (136-145); TOTAL IRON BINDING CAPACITY 368 UG/DL (250-450)
== END ==
LOC: M SFHCADAM 08:20
PROVIDERS: ATTEND Family Medicine
DX: D50.0 Iron deficiency anemia secondary to blood loss (chronic) (principal); I11.9 Hypertensive heart disease without heart failure

== ENCOUNTER 2022-02-02 13:13 | Day surgery (SDC) | payer OTHER ==
[~2022-02-02] VITALS: Ht 167.6 cm; Wt 82.9 kg
[~2022-02-02 13:13] MED LIST changes: +ACET500T15 PO; +NS 1,000 ML IV ONE
[2022-02-02] MEDS ORDERED: propofoL 200 MG/20 ML VIAL As Ordered ONE (14:22)
[2022-02-02] MEDS ORDERED: LIDOCAINE 2% 100MG/5ML SDV (FOR ANES.) As Ordered ONE (14:22)
[2022-02-02] MEDS ORDERED: GLUCAGON INJ 1MG VIAL As Ordered ONE (14:28)
[2022-02-02 15:00] VITALS: BP 100/50
== END 2022-02-02 15:20 | disposition home or self-care (01) ==
LOC: M OPP 13:13
PROVIDERS: ATTEND Internal Medicine Gastroenterology
CPT/HCPCS: 43255; 87426; J1610